=== PATIENT | male | born 1945 ===

== ENCOUNTER 2017-02-10 12:40 | Emergency (ER) | payer MEDICARE, OTHER ==
[2017-02-10 12:40] VITALS: BMI 30.5
[2017-02-10 12:50] VITALS: O2SAT 96
[2017-02-10 13:51] LABS: URINE BILIRUBIN NEGATIVE (NEGATIVE); URINE BLOOD NEGATIVE (NEGATIVE); URINE CLARITY Clear (Clear); URINE COLOR Yellow (YELLOW); URINE GLUCOSE (UA) NORMAL (Normal); URINE LEUKOCYTE ESTERASE NEG Leu/uL (Negative); URINE NITRATE NEGATIVE (NEGATIVE); URINE PROTEIN NEGATIVE (NEGATIVE); URINE UROBILINOGEN NORMAL mg/dL (0.2-1.0)
--- NOTE | 2017-02-10 14:04 | C.PDOC ---
History Of Present Illness 71 yr old male sent to ER by PMD to rule out testicular torsion. Patient states the pain started yesterday evening. Patient denies fever, nausea, vomiting, abdominal pain, dysuria, hematuria, penile discharge, back pain, weakness or numbness. Time Seen by Provider: 02/10/17 13:00 Chief Complaint (Nursing): Groin Pain History Per: Patient History/Exam Limitations: no limitations Onset/Duration Of Symptoms: Days (1) Current Symptoms Are (Timing): Still Present Past Medical History Reviewed: Historical Data, Nursing Documentation, Vital Signs Vital Signs: Last Vital Signs Temp 98 F 02/10/17 14:49 Pulse 71 02/10/17 14:49 Resp 17 02/10/17 14:49 BP 127/71 02/10/17 14:49 Pulse Ox 96 02/10/17 15:20 - Medical History PMH: HTN, Hypercholesterolemia, Kidney Stones, Chronic Kidney Disease Surgical History: Endoscopy Family History: States: No Known Family Hx - Social History Hx Tobacco Use: No Hx Alcohol Use: Yes Hx Substance Use: No Review Of Systems Except As Marked, All Systems Reviewed And Found Negative. Constitutional: Negative for: Fever Gastrointestinal: Negative for: Nausea, Vomiting, Abdominal Pain Genitourinary: Positive for: Penile Pain. Negative for: Dysuria, Hematuria, Penile Discharge Musculoskeletal: Negative for: Back Pain Neurological: Negative for: Weakness, Numbness Physical Exam - Physical Exam Appears: Non-toxic, No Acute Distress Skin: Warm, Dry, No Rash Head: Atraumatic, Normacephalic Oral Mucosa: Moist Chest: Symmetrical, No Tenderness Cardiovascular: Rhythm Regular, No Murmur Respiratory: Normal Breath Sounds, No Rales, No Rhonchi, No Stridor, No Wheezing Male Genital: Testicular Tenderness (Right ), No Circumcised, Other ((+) Pain is relieved with scrotal support.) Extremity: Normal ROM, No Swelling Neurological/Psych: Oriented x3, Normal Speech, Normal Motor ED Course And Treatment O2 Sat by Pulse Oximetry: 96 (RA) Pulse Ox Interpretation: Normal - CT Scan/US US - Testicular Other Rad Studies (CT/US): Read By Radiologist, Radiology Report Reviewed CT/US Interpretation: Testicular ultrasound. History: Testicular pain. Comparison: None available. Technique: Real-time sonography was performed through the scrotum with color Doppler flow. Findings: Right testes: 3.1 x 1.8 x 2.9 centimeters. Normal flow. Right epididymis: 1.9 x 1.7 x 2.2 centimeters. Normal flow. Hypoechoic cyst measuring 6 x 4 x 6 millimeters. Additional septated hypoechoic cyst measuring 1.1 x 0.6 centimeters. Left testes: 3.0 x 1.4 x 2.7 centimeters. Normal flow. Left epididymis measures 1.4 x 0.6 x 0.9 centimeters. Normal flow. Small right scrotal hydrocele. Impression: Two right epididymal cysts as described above, one of which appears septated. Small right scrotal hydrocele. Otherwise unremarkable sonographic evaluation of the scrotum. Medical Decision Making Medical Decision Making: PLAN: * US - Testicular * Urinalysis Disposition - Disposition Referrals: Kwabena Iqbal MD [Medical Doctor] - Disposition: HOME/ ROUTINE Disposition Time: 14:20 Condition: GOOD Additional Instructions: Thank you for letting us take care of you today. Your provider was Dr. Gary. You were treated for testicular pain. The emergency medical care you received today was directed at your acute symptoms. If you were prescribed any medication, please fill it and take as directed. It may take several days for your symptoms to resolve. Return to the Emergency Department if your symptoms worsen, do not improve, or if you have any other problems. Please contact your doctor or call one of the physicians/clinics you have been referred to that are listed on the Patient Visit Information form that is included in your discharge packet. Bring any paperwork you were given at discharge with you along with any medications you are taking to your follow up visit. Our treatment cannot replace ongoing medical care by a primary care provider (PCP) outside of the emergency department. Thank you for allowing the [email or web address] team to be part of your care today. Follow up with Dr. Iqbal in 2 days for re-evaluation and further management. Prescriptions: levoFLOXacin [Levaquin] 500 mg PO DAILY #10 tab Instructions: Epididymitis (ED), Testicle Pain (ED) Forms: [employer] (Georgian) - Clinical Impression Clinical Impression: Epididymitis - Scribe Statement The provider has reviewed the documentation as recorded by the Scribe Saida Castro Provider Attestation: All medical record entries made by the Scribe were at my direction and personally dictated by me. I have reviewed the chart and agree that the record accurately reflects my personal performance of the history, physical exam, medical decision making, and the department course for this patient. I have also personally directed, reviewed, and agree with the discharge instructions and disposition.
[2017-02-10 14:50] VITALS: BP 127/71; PULSE 71; RESP 17; TEMP 98
--- NOTE | 2017-02-10 15:17 | US ---
Testicular ultrasound History: Testicular pain. Comparison: None available. Technique: Real-time sonography was performed through the scrotum with color Doppler flow. Findings: Right testes: 3.1 x 1.8 x 2.9 centimeters. Normal flow. Right epididymis: 1.9 x 1.7 x 2.2 centimeters. Normal flow. Hypoechoic cyst measuring 6 x 4 x 6 millimeters. Additional septated hypoechoic cyst measuring 1.1 x 0.6 centimeters. Left testes: 3.0 x 1.4 x 2.7 centimeters. Normal flow. Left epididymis measures 1.4 x 0.6 x 0.9 centimeters. Normal flow. Small right scrotal hydrocele. Impression: Two right epididymal cysts as described above, one of which appears septated. Small right scrotal hydrocele. Otherwise unremarkable sonographic evaluation of the scrotum.
== END 2017-02-10 14:49 | disposition home or self-care (01) ==
LOC: C.ER 12:40
DX: N45.1 Epididymitis (principal)